=== PATIENT | female | born 1940 | race Caucasian/White ===

== ENCOUNTER → 2018-01-02 | Outpatient (CLI) | payer MEDICARE, OTHER ==
--- NOTE | 2018-01-09 09:03 | MAM ---
EXAM DESCRIPTION: 3D Screening BILATERAL : Digital Mammography. CLINICAL HISTORY: 77 years Female SCREENING . No complaints. No family history of breast cancer. Postmenopausal. HRT 5 or more years ago.. COMPARISON: Baseline study at this facility.. No prior reports available. TECHNIQUE: Bilateral CC and MLO projection full-field images, 3-D tomosynthesis digital mammographic technique. Also bilateral synthesized CC/ MLO full-field images. CAD not utilized. FINDINGS: The breast parenchymal density pattern is: Scattered areas of fibroglandular density. No skin thickening or nipple retraction bilateral solitary microcalcifications. Bilateral vascular calcifications. Right axillary lymph nodes in lymph node in the axillary tail. Focal asymmetry in the lower outer quadrant of the right breast at the 400 clock position. More dense than the surrounding fibroglandular tissues. Approximately 4 cm from the nipple, not associated with microcalcifications. No focal, stellate mass or density, focal asymmetry , and no suspicious microcalcifications left breast IMPRESSION: BI-RADS CATEGORY: 0 - INCOMPLETE- Need additional imaging evaluation. FOLLOW-UP: Recall for additional imaging: Bilateral 3-D tomosynthesis LM full-field images and targeted right breast ultrasound of the region of interest if needed. Written communication concerning the IMPRESSION and Follow-up, will be mailed to the patient and referring health care provider. Electronically signed by: David Erazo MD 01/09/2018 9:02 AM [employer]
== END ==
LOC: MAMMO 14:00
PROVIDERS: ATTEND General Practice
DX: Z12.31 Encounter for screening mammogram for malignant neoplasm of breast (principal)

== ENCOUNTER → 2018-01-23 | Outpatient (CLI) | payer MEDICARE, OTHER ==
--- NOTE | 2018-01-23 15:24 | MAM ---
DIAGNOSTIC RIGHT BREAST MAMMOGRAMS AND ULTRASOUND HISTORY: Indeterminate asymmetry in inferior medial right breast COMPARISON: Mammograms of January 02, 2018 TECHNIQUE: Digital 2-D mammograms , and 3-D tomosynthesis,1 of right breast were performed in CC and MLO orientations. Mammo CAD analysis also performed. Grayscale and color Doppler sonographic evaluations also performed from through the 6:00 position of right breast. FINDINGS: Mammograms: Heterogeneously dense fibroglandular tissue identified in right breast. Focal asymmetry in anterior aspect of inferior medial right breast, with adjacent microcalcification, without underlying mass lesion. This represents summation artifact. Stable appearance of benign 6 mm nodular density in superior right breast. Scattered benign microcalcifications and vascular calcifications again seen in right breast. No obvious mass lesion or concerning microcalcifications or architectural distortion detected in right breast. A 5 mm benign cyst incidentally noted near 6:00 position of the right breast. No mass nor shadowing abnormality nor loculated fluid collection nor architectural distortion detected in remainder of right breast, including area that corresponds to the indeterminate asymmetry situated between four to 5:00 position. IMPRESSION: No mammographic nor sonographic evidence of malignancy in right breast. BI-RADS: 2, benign findings. Follow-up: Annual surveillance recommended Electronically signed by: Fransisco Morocho MD 01/23/2018 3:24 PM [employer]
== END ==
LOC: MAMMO 10:13
PROVIDERS: ATTEND General Practice
DX: R92.8 Other abnormal and inconclusive findings on diagnostic imaging of breast (principal)
CPT/HCPCS: 76641; 77065; G0279

== ENCOUNTER → 2020-01-29 | Outpatient (CLI) | payer MEDICARE, OTHER | DX: Z12.31 Encounter for screening mammogram for malignant neoplasm of breast (principal) ==

== ENCOUNTER → 2020-06-18 | Outpatient (CLI) | payer MEDICARE, OTHER ==
--- NOTE | 2020-06-19 05:22 | MRI ---
EXAM DESCRIPTION: Brain w/o Contrast: MRI. CLINICAL HISTORY: HX OF STROKE COMPARISON: None. TECHNIQUE: Multiplanar, high-field MRI unit, multiple diffusion sequences, multiple conventional sequences without contrast. FINDINGS: Focal area of diffusion restriction in the periventricular white matter of the right frontoparietal junction hollins radiata. This region shows hyperintense T2 and FLAIR signal. No acute or chronic hemorrhage and no mass effect. Bilateral confluent and relatively symmetric hyperintense FLAIR and T2-weighted signal in the periventricular white matter /hollins radiata and sub-cortical white matter involving most of the lobes bilaterally with relative sparing of the temporal lobes also involving the bilateral centrum semiovale with bilateral multiple foci in the subcortical white matter toward the vertex. No hemorrhage, no cerebral edema, no midline shift.. Bilateral symmetric signal in the basal ganglia, similar to the white matter signal, anterior posterior and lateral margins. No hemorrhage, no cerebral edema, no mass-effect similar signal in the bilateral pedro of the brainstem. No hemorrhage, no cerebral edema, no mass-effect. Normal signal in the bilateral cerebellar hemispheres. Concordance of the diffusion and non-diffusion sequences in other regions of the brain with no diffusion restriction. Cortical sulci, ventricles, and other CSF spaces, and the subdural spaces are normally configured for patient's age. No effacement or displacement. No midline shift. No extra-axial hemorrhage. Normal flow signal void in the major vessels of the [place], and the venous sinuses. IACs are symmetric bilaterally. Normal signal in the bilateral mastoid air cells, which are small bilaterally. No mass effect in the bilateral cerebellopontine angles. Pituitary gland occupies most of the sella. Base of the cerebellar tonsils is just above the foramen magnum. Mucoperiosteal thickening in the bilateral paranasal sinuses.. The bony calvarium is intact. IMPRESSION: 1. 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 No hemorrhage and no mass effect. 2. Bilateral diffuse abnormal white matter signal involving the hollins radiata, centrum semiovale, and subcortical white matter frontoparietal and occipital lobes with no hemorrhage. No other signs of infarction. Most likely related to aging and cerebral microvascular disease. Similar white matter involvement of the basal ganglia and the pedro of the brainstem with no acute infarction or hemorrhage. 3. Chronic paranasal sinusitis. Electronically signed by: David Erazo MD 06/19/2020 5:20 AM CDT
== END ==
LOC: MRI 13:34
PROVIDERS: ATTEND General Practice
DX: R90.82 White matter disease, unspecified (principal); J32.9 Chronic sinusitis, unspecified; R53.1 Weakness; Z86.73 Personal history of transient ischemic attack (TIA), and cerebral infarction without residual deficits